=== PATIENT | male | born 1970 | race Caucasian/White ===

== ENCOUNTER → 2021-04-14 | Outpatient (CLI) | payer OTHER ==
[~2021-04-14] MED LIST: CINNAMON PO; FISH OIL PO; L-LYSINE PO; LISI40TA9 PO; MULT-658 PO; SILD20TA2 PO
[2021-04-14 16:25] LABS: ALBUMIN 4.2 g/dL (3.4-5.0); ANION GAP 4 mmol/L (5-15); CHLORIDE 108 mmol/L (98-107)
[2021-04-14 16:28] LABS: ALANINE AMINOTRANSFERASE 68 U/L (12-78); ALKALINE PHOSPHATASE 68 U/L (45-117); BILIRUBIN,TOTAL 0.9 mg/dL (0.2-1.0); TOTAL PROTEIN 7.6 g/dL (6.4-8.2)
== END | disposition home or self-care (01) ==
LOC: STAR 15:08
PROVIDERS: ATTEND Surgery
DX: Z01.812 Encounter for preprocedural laboratory examination (principal); Z20.822 Contact with and (suspected) exposure to COVID-19
CPT/HCPCS: 36415; 80053; U0003; U0005

== ENCOUNTER 2021-04-18 06:41 | Day surgery (SDC) | payer OTHER ==
[~2021-04-18] VITALS: Ht 180.3 cm; Wt 111.3 kg
[2021-04-18] MEDS ORDERED: EPINEPHRINE 1 MG/ML, 1ML ONE (06:49)
[2021-04-18] MEDS ORDERED: BUPIVACAINE/PF 0.5% ONE (06:49)
[2021-04-18] MEDS ORDERED: CHLORHEXIDINE 15 ML UDC ONE (07:23)
[2021-04-18] MEDS ORDERED: CHLORHEXIDINE 15 ML UDC PO ONE ×2 (07:30→09:00)
[2021-04-18] MEDS ORDERED: LACTATED RINGERS 1,000 ML IV SCH (07:30)
[2021-04-18] MEDS ORDERED: DIAZEPAM 5 MG/ML, 2ML IVPush PRN (07:30)
[2021-04-18] MEDS ORDERED: ONDANSETRON 2MG/ML, 2ML IVPush PRN (07:30)
[2021-04-18] MEDS ORDERED: OXYcodone 5 MG/5 ML ORAL.SOL UDC PO PRN (07:30)
[2021-04-18] MEDS ORDERED: MEPERIDINE/PF 25MG/0.5ML IVPush PRN (07:30)
[2021-04-18] MEDS ORDERED: HALOPERIDOL 5 MG/ML IV PRN (07:30)
[2021-04-18] MEDS ORDERED: LABETALOL 5MG/ML, 20ML IV PRN (07:30)
[2021-04-18] MEDS ORDERED: ACETAMINOPHEN 325 MG TABLET PO PRN (07:30)
[2021-04-18] MEDS ORDERED: EPHEDRINE 50 MG/ML, 1ML IVPush PRN (07:30)
[2021-04-18] MEDS ORDERED: PROMETHAZINE 25 MG/ML, 1ML IVPush PRN (07:30)
[2021-04-18] MEDS ORDERED: DIPHENHYDRAMINE 50 MG/ML, 1ML IVPush PRN (07:30)
[2021-04-18] MEDS ORDERED: METOPROLOL 1 MG/ML, 5ML IV PRN (07:30)
[2021-04-18] MEDS ORDERED: KETOROLAC 30 MG/1 ML IVPush PRN (07:30)
[2021-04-18] MEDS ORDERED: HYDROmorphone 1 MG/ML, 1ML INJ IVPush PRN (07:30)
[2021-04-18] MEDS ORDERED: hydrALAzine 20 MG/ML, 1ML IV PRN (07:30)
[2021-04-18] MEDS ORDERED: METOCLOPRAMIDE 5 MG/ML, 2ML IVPush PRN (07:30)
[2021-04-18] MEDS ORDERED: FENTANYL PF 100 MCG/2ML IV PRN (07:30)
[2021-04-18] MEDS ORDERED: MIDAZOLAM 1 MG/ML, 2ML ONE (08:05)
[2021-04-18] MEDS ORDERED: FENTANYL PF 250 MCG/5ML ONE (08:06)
[2021-04-18] MEDS ORDERED: HYDROmorphone 1 MG/ML, 1ML INJ ONE (08:06)
[2021-04-18] MEDS ORDERED: ROCURONIUM 10 MG/ML,10ML ONE (09:00)
[2021-04-18] MEDS ORDERED: DEXAMETHASONE 4 MG/ML, 1ML ONE (09:00)
[2021-04-18] MEDS ORDERED: SUCCINYLCHOLINE 20 MG/ML, 10ML ONE (09:00)
[2021-04-18] MEDS ORDERED: LIDOCAINE 1%, 20ML ONE (09:00)
[2021-04-18] MEDS ORDERED: CEFOTETAN 1 GM ONE (09:00)
[2021-04-18] MEDS ORDERED: ONDANSETRON 2MG/ML, 2ML ONE (09:00)
[2021-04-18] MEDS ORDERED: PROPOFOL 10 MG/ML, 20ML ONE (09:00)
[2021-04-18] MEDS ORDERED: OXYC5TAB2 PO (09:06)
[2021-04-18] MEDS ORDERED: ACETAMINOPHEN 650 MG/20.3 ML UDC ONE (10:54)
[2021-04-18] MEDS ORDERED: OXYcodone 5 MG/5 ML ORAL.SOL UDC ONE (10:54)
[2021-04-18] MEDS ORDERED: AMOX1TAB64 PO (11:00)
== END 2021-04-18 13:15 | disposition home or self-care (01) ==
LOC: OUT 06:41
PROVIDERS: ATTEND Surgery
DX: K61.39 Other ischiorectal abscess (principal); K64.1 Second degree hemorrhoids; I10 Essential (primary) hypertension; E66.9 Obesity, unspecified; Z79.899 Other long term (current) drug therapy
CPT/HCPCS: 46020; 87015; 87070; 87075; 87102; 87116; 87205; 87206; J0171; J0330; J1100; J1170; J2250; J2405; J2704; J3010